=== PATIENT | male | born 1955 | race Caucasian/White ===

== ENCOUNTER 2022-09-25 15:08 | Emergency (ER) | payer OTHER ==
[2022-09-25 17:01] LABS: #Eosinphils 0.1 thou/uL (0.0-0.7); #Lymphocytes 1.2 thou/uL (1.20-3.40); #Monocytes 0.7 thou/uL (0.11-0.59); #Neutrophils 8.5 thou/uL (1.40-6.50); %Basophils 0.3 % (0.0-1.0); %Eosinophils 1.3 % (0.0-10.0); %Lymphocytes 11.5 % (21.0-51.0); %Monocytes 6.4 % (0.0-10.0); %Neutrophils 80.5 % (42.0-75.0); Hemoglobin 14.8 g/dL (14.0-18.0); Mean Corpuscular HGB CONC 33.8 g/dL (32.0-36.0); Mean Corpuscular Hemoglobin 30.1 pg (27.0-31.0); Mean Corpuscular Volume 88.9 fl (78.0-98.0); Mean Platelet Volume 7.8 fL (7.4-10.4); Platelet Count 227 10x3/uL (130-400); RBC Distribution Width 13.2 % (11.5-14.5); Red Blood Cell (RBC) Count 4.91 mill/uL (4.70-6.10); White Blood Cell (WBC) Count 10.5 10x3/uL (4.8-10.8)
[2022-09-25 17:30] LABS: ALT (SGPT) 11 U/L (8-55); AST (SGOT) 10 U/L (5-34); Albumin 3.8 g/dL (3.4-4.8); Alkaline Phosphatase 86 U/L (40-110); Anion Gap 14 mmol/L (10-20); BUN (Urea Nitrogen) 25 mg/dL (8.4-25.7); Bilirubin, Total 0.5 mg/dL (0.2-1.2); Calc. Creatinine Clearance 0 mL/min (70-130); Calcium 8.7 mg/dL (7.8-10.44); Carbon Dioxide 24 mmol/L (23-31); Chloride 96 mmol/L (98-107); Estimated GFR 57; Globulin 2.8 g/dL (2.4-3.5); Potassium 4.4 mmol/L (3.5-5.1); Protein, Total 6.6 g/dL (5.8-8.1); Sodium 130 mmol/L (136-145)
[2022-09-25 17:35] LABS: Glucose 523 mg/dL (80-115)
[2022-09-25 17:51] LABS: Bilirubin Negative (Negative); Blood, Urine Negative (Negative); Clarity Clear (Clear); Glucose, Urine (Dipstick) Greater than 1000 mg/dL (Negative); Ketone, Urine Trace mg/dL (Negative); Leukocyte Negative Leu/uL (Negative); Nitrite Negative (Negative); Protein, Urine (Dipstick) 20 mg/dL (Neg-Trace); Specific Gravity, Urine 1.025 (1.002-1.036); Urobilinogen Normal mg/dL (Less than 2); pH, Urine 5.5 (5.0-9.0)
== END 2022-09-25 18:59 | disposition home or self-care (01) ==
LOC: ERS 15:08
DX: E11.65 Type 2 diabetes mellitus with hyperglycemia (principal); R41.82 Altered mental status, unspecified; I10 Essential (primary) hypertension; Z79.4 Long term (current) use of insulin
CPT/HCPCS: 36415; 36416; 70450; 71045; 80053; 81003; 84484; 85025; 93005; 96360